=== PATIENT | male | born 1985 | race Caucasian/White ===

== ENCOUNTER 2019-03-09 17:08 | Emergency (ER) | payer SELFPAY ==
[~2019-03-09] VITALS: Ht 170.2 cm; Wt 68.2 kg
[2019-03-09] MEDS ORDERED: GI COCKTAIL 50ML BTL(HYOSCYAMINE/MAALOX/LIDOCAINE VISCOUS)(1:3:1) PO ONE (17:30)
[2019-03-09 17:49] LABS: VENOUS BASE EXCESS 2.2 (-2.0-2.0); VENOUS HCO3 23.5 MEQ/L (23.0-27.0); VENOUS O2 SATURATION 80.6 % (60.0-80.0); VENOUS PARTIAL PRESSURE CO2 28.4 mmHg (38.0-50.0); VENOUS PARTIAL PRESSURE O2 37.8 mmHg (30.0-50.0); VENOUS PH 7.535 UNITS (7.330-7.430); VENOUS STANDARD HCO3 25.9 MEQ/L; VENOUS TOTAL CO2 24.3 MEQ/L (24.0-28.0)
[2019-03-09 17:54] LABS: BASO # 0.1 10^3/uL (0.0-0.2); BASO % 0.6 % (0.0-1.0); EOS # 0.1 10^3/uL (0.0-0.5); EOS % 0.9 % (0.0-3.0); HEMATOCRIT 46.4 % (42.0-52.0); LYMPH # 2.2 10^3/uL (1.5-5.0); LYMPH % 27.2 % (24.0-44.0); MEAN CORPUSCULAR HEMOGLOBIN 29.6 pg (27.0-33.0); MEAN CORPUSCULAR HGB CONC 34.5 g/dl (32.0-36.5); MEAN CORPUSCULAR VOLUME 85.9 fl (80.0-96.0); MONO # 0.8 10^3/uL (0.0-0.8); MONO % 9.9 % (0.0-5.0); NEUTROPHILS # 4.9 10^3/uL (1.5-8.5); NEUTROPHILS % 61.2 % (36.0-66.0); PLATELET COUNT, AUTOMATED 286 10^3/uL (150-450)
--- NOTE | 2019-03-09 17:55 | REP ---
Clinical: Acute chest pain . Comparison: None . Findings: The mediastinum and cardiac silhouette are stable and within normal limits for portable technique. The lung fernandez are clear without acute consolidation, effusion, or pneumothorax. Skeletal structures are intact. Impression: No acute cardiopulmonary process appreciated. Electronically Signed by Harrison Oliveira MD 03/09/2019 05:46 P
[2019-03-09 18:13] LABS: ERYTHROCYTE SEDIMENTATION RATE 1 mm/hr (0-15)
[2019-03-09 18:19] LABS: ALBUMIN 3.9 GM/DL (3.2-5.2); ALT/SGPT 21 U/L (12-78); BILIRUBIN,DIRECT 0.2 MG/DL (0.0-0.2); BILIRUBIN,TOTAL 0.8 MG/DL (0.2-1.0); BLOOD UREA NITROGEN 9 MG/DL (7-18); C REACTIVE PROTEIN QUANTITATIV < 0.30 MG/DL (0.00-0.30); CALCIUM LEVEL 9.4 MG/DL (8.5-10.1); CARBON DIOXIDE LEVEL 24 MEQ/L (21-32); CHLORIDE LEVEL 108 MEQ/L (98-107); CK-MB VALUE MASS < 1.0 NG/ML (<3.6); CPK CREATINE PHOSPHOKINASE 82 U/L (39-308); GLOMERULAR FILTRATION RATE > 60.0 (>60); GLUCOSE, FASTING 113 MG/DL (70-100); LIPASE 135 U/L (73-393); MB/CK RELATIVE INDEX 1.22 (< OR =4); POTASSIUM SERUM 3.3 MEQ/L (3.5-5.1); SODIUM LEVEL 140 MEQ/L (136-145); TOTAL PROTEIN 6.7 GM/DL (6.4-8.2); TROPONIN I < 0.02 NG/ML (< 0.10)
[2019-03-09] MEDS ORDERED: POTASSIUM CHLORIDE 10 MEQ SR TABLET PO ONE (18:30)
[2019-03-09] MEDS ORDERED: KETOROLAC 30 MG/ML VIAL (J1885) IV ONE (18:30)
[2019-03-09 19:15] VITALS: BP 125/62
--- NOTE | 2019-03-11 07:23 | ECGEPIP ---
[facility] - ED Test Date: 2019-03-09 Pat Name: KENDRA DELAROSA Department: Room: - Gender: Male [employer]: reyna : 1985 Requested By: DEJA ALBARADO Order Number: [id number] Reading MD: Varun Conway Measurements Intervals [place] Rate: 83 P: 81 MT: 145 QRS: 73 QRSD: 86 T: 64 QT: 340 QTc: 400 Interpretive Statements SINUS RHYTHM WITH SINUS ARRHYTHMIA Comparison tracing not on file Electronically Signed on 03-11-2019 7:23:07 EST by Varun Conway
== END 2019-03-09 19:44 | disposition home or self-care (01) ==
LOC: M ED 17:08 → EDBD 17:08 → M ED 19:44
DX: R06.4 Hyperventilation (principal); Z88.8 Allergy status to other drugs, medicaments and biological substances
CPT/HCPCS: 36415; 71045; 80048; 80076; 82550; 82553; 82803; 83690; 84484; 85025; 85379; 85652; 86140; 93005; 93041; 96374; 99285; J1885

== ENCOUNTER → 2019-07-21 | Outpatient (CLI) | payer OTHER, SELFPAY ==
[~2019-07-21] MED LIST: HYDR-3363 PO
== END ==
LOC: M LABSMTC 13:37
PROVIDERS: ATTEND Family Medicine
DX: Z11.59 Encounter for screening for other viral diseases (principal); Z20.828 Contact with and (suspected) exposure to other viral communicable diseases
CPT/HCPCS: C9803; U0003

== ENCOUNTER 2019-08-23 21:18 | Emergency (ER) | payer SELFPAY ==
[~2019-08-23] VITALS: Ht 170.2 cm; Wt 81.8 kg
[2019-08-23 21:18] VITALS: BP 138/80
[2019-08-23] MEDS ORDERED: HYDR-3363 PO (22:47)
== END 2019-08-23 23:41 | disposition home or self-care (01) ==
LOC: M ED 21:18
DX: F41.1 Generalized anxiety disorder (principal); Z79.899 Other long term (current) drug therapy; Z88.8 Allergy status to other drugs, medicaments and biological substances

== ENCOUNTER → 2020-05-23 | Outpatient (CLI) | payer SELFPAY ==
[~2020-05-23] MED LIST changes: +AUGM875T28 PO; +COLD1LIQ PO
== END ==
LOC: M LABSMTC 12:07
PROVIDERS: ATTEND Family Medicine
DX: Z20.822 Contact with and (suspected) exposure to COVID-19 (principal)
CPT/HCPCS: C9803; U0003

== ENCOUNTER 2020-05-25 12:56 | Emergency (ER) | payer SELFPAY ==
[~2020-05-25 12:56] MED LIST changes: -AUGM875T28 PO; -COLD1LIQ PO
[2020-05-25] MEDS ORDERED: COLD1LIQ PO (14:03)
[2020-05-25] MEDS ORDERED: AUGM875T28 PO (14:03)
[2020-05-25 14:20] VITALS: BP 122/76
== END 2020-05-25 14:25 | disposition home or self-care (01) ==
LOC: M ED 12:56 → EDBD 12:56 → M ED 14:25
DX: U07.1 COVID-19 (principal); F41.9 Anxiety disorder, unspecified; Z88.8 Allergy status to other drugs, medicaments and biological substances

== ENCOUNTER 2020-12-12 21:35 | Emergency (ER) | payer SELFPAY, OTHER ==
[~2020-12-12] VITALS: Ht 172.7 cm; Wt 68.7 kg
[2020-12-12 21:35] VITALS: BP 140/74
[~2020-12-12 21:35] MED LIST changes: +AUGM875T28 PO; +COLD1LIQ PO
== END 2020-12-12 21:57 | disposition left against medical advice (07) ==
LOC: M ED 21:35
DX: Z53.29 Procedure and treatment not carried out because of patient's decision for other reasons (principal)

== ENCOUNTER 2021-08-17 08:49 | Emergency (ER) | payer OTHER, SELFPAY ==
[~2021-08-17] VITALS: Ht 170.2 cm; Wt 70.5 kg
[2021-08-17] MEDS ORDERED: NS 1,000 ML IV ONE (09:30)
[2021-08-17] MEDS ORDERED: MORPHINE 4 MG/ML 1ML VIAL/SYRINGE IV ONE (09:30)
[2021-08-17] MEDS ORDERED: ONDANSETRON 4MG/2ML VIAL IV ONE (09:30)
[2021-08-17 09:44] LABS: BASO # 0.1 10^3/uL (0.0-0.2); BASO % 0.4 % (0.0-1.0); EOS % 0.3 % (0.0-3.0); HEMATOCRIT 45.5 % (42.0-52.0); HEMOGLOBIN 16.1 g/dl (13.5-17.5); LYMPH # 1.7 10^3/uL (1.5-5.0); LYMPH % 14.6 % (24.0-44.0); MEAN CORPUSCULAR HEMOGLOBIN 29.4 pg (27.0-33.0); MEAN CORPUSCULAR HGB CONC 35.4 g/dl (32.0-36.5); MONO # 0.8 10^3/uL (0.0-0.8); MONO % 7.2 % (2.0-8.0); NEUTROPHILS % 77.2 % (36.0-66.0); PLATELET COUNT, AUTOMATED 247 10^3/uL (150-450); RED BLOOD COUNT 5.48 10^6/uL (4.30-6.10); WHITE BLOOD COUNT 11.7 10^3/uL (4.0-10.0)
[2021-08-17 10:19] LABS: ALBUMIN 4.2 GM/DL (3.2-5.2); ALT/SGPT 21 U/L (12-78); BILIRUBIN,TOTAL 1.2 MG/DL (0.2-1.0); BLOOD UREA NITROGEN 9 MG/DL (7-18); CALCIUM LEVEL 9.7 MG/DL (8.5-10.1); CARBON DIOXIDE LEVEL 20 MEQ/L (21-32); CHLORIDE LEVEL 108 MEQ/L (98-107); CREATININE FOR GFR 1.26 MG/DL (0.70-1.30); GLOMERULAR FILTRATION RATE > 60.0 (>60); GLUCOSE, FASTING 164 MG/DL (70-100); LIPASE 111 U/L (73-393); POTASSIUM SERUM 3.8 MEQ/L (3.5-5.1); SODIUM LEVEL 141 MEQ/L (136-145); TOTAL PROTEIN 7.1 GM/DL (6.4-8.2)
[2021-08-17] MEDS ORDERED: NS IV ONE (11:10)
[2021-08-17] MEDS ORDERED: ISOVUE-370 76% 100ML VIAL As Ordered ONE (11:18)
[2021-08-17] MEDS ORDERED: KETOROLAC 30 MG/ML 1ML VIAL IV ONE (11:50)
[2021-08-17] MEDS ORDERED: LIDOCAINE 2% 5ML JELLY UROJET TOP ONE (12:30)
[2021-08-17] MEDS ORDERED: FLOM0.4C39 PO (13:36)
[2021-08-17] MEDS ORDERED: KETO10TAB PO (13:36)
[2021-08-17 13:45] VITALS: BP 130/75
== END 2021-08-17 14:00 | disposition home or self-care (01) ==
LOC: M ED 08:49
DX: N13.2 Hydronephrosis with renal and ureteral calculous obstruction (principal); R42 Dizziness and giddiness; F32.A Depression, unspecified; F41.9 Anxiety disorder, unspecified; Z88.8 Allergy status to other drugs, medicaments and biological substances; Z79.899 Other long term (current) drug therapy; F17.200 Nicotine dependence, unspecified, uncomplicated
CPT/HCPCS: 74177; 80053; 81001; 83605; 83690; 85025; 96361; 96374; 96375; 99284; J1885; J2270; J2405; Q9967

== ENCOUNTER 2021-10-02 10:48 | Emergency (ER) | payer OTHER, SELFPAY ==
[~2021-10-02] VITALS: Ht 170.2 cm; Wt 70.5 kg
[~2021-10-02 10:48] MED LIST changes: +FLOM0.4C39 PO; +KETO10TAB PO
[2021-10-02] MEDS ORDERED: NS 1,000 ML IV ONE (11:50)
[2021-10-02] MEDS ORDERED: NAPR-885 PO (12:33)
[2021-10-02] MEDS ORDERED: MORPHINE 4 MG/ML 1ML VIAL/SYRINGE IV ONE (12:35)
[2021-10-02 12:37] LABS: BASO % 0.3 % (0.0-1.0); EOS % 0.2 % (0.0-3.0); HEMATOCRIT 43.8 % (42.0-52.0); HEMOGLOBIN 15.1 g/dl (13.5-17.5); LYMPH # 0.9 10^3/uL (1.5-5.0); LYMPH % 7.1 % (24.0-44.0); MEAN CORPUSCULAR HEMOGLOBIN 30.4 pg (27.0-33.0); MEAN CORPUSCULAR HGB CONC 34.5 g/dl (32.0-36.5); MEAN CORPUSCULAR VOLUME 88.3 fl (80.0-96.0); MONO # 0.9 10^3/uL (0.0-0.8); MONO % 6.8 % (2.0-8.0); NEUTROPHILS # 11.1 10^3/uL (1.5-8.5); NEUTROPHILS % 85.1 % (36.0-66.0); PLATELET COUNT, AUTOMATED 221 10^3/uL (150-450); RED BLOOD COUNT 4.96 10^6/uL (4.30-6.10)
[2021-10-02 13:21] LABS: ALBUMIN 4.5 GM/DL (3.2-5.2); ALT/SGPT 21 U/L (12-78); BILIRUBIN,DIRECT 0.2 MG/DL (0.0-0.2); BILIRUBIN,TOTAL 1.1 MG/DL (0.2-1.0); BLOOD UREA NITROGEN 12 MG/DL (7-18); CALCIUM LEVEL 9.9 MG/DL (8.5-10.1); CARBON DIOXIDE LEVEL 21 MEQ/L (21-32); CHLORIDE LEVEL 107 MEQ/L (98-107); CREATININE FOR GFR 1.28 MG/DL (0.70-1.30); GLOMERULAR FILTRATION RATE > 60.0 (>60); GLUCOSE, FASTING 126 MG/DL (70-100); LIPASE 90 U/L (73-393); POTASSIUM SERUM 4.1 MEQ/L (3.5-5.1); SODIUM LEVEL 140 MEQ/L (136-145); TOTAL PROTEIN 6.9 GM/DL (6.4-8.2)
[2021-10-02] MEDS ORDERED: TAMSULOSIN 0.4 MG CAP PO ONE (13:30)
[2021-10-02] MEDS ORDERED: KETOROLAC 30 MG/ML 1ML VIAL IV ONE (13:30)
[2021-10-02] MEDS ORDERED: FLOM0.4C39 PO (13:51)
[2021-10-02] MEDS ORDERED: KETO10TAB PO (13:51)
[2021-10-02 14:43] VITALS: BP 121/69
== END 2021-10-02 15:13 | disposition home or self-care (01) ==
LOC: M ED 10:48
DX: N20.0 Calculus of kidney (principal); N13.4 Hydroureter; Z79.899 Other long term (current) drug therapy; Z88.8 Allergy status to other drugs, medicaments and biological substances; Z87.442 Personal history of urinary calculi
CPT/HCPCS: 74176; 80047; 80048; 80076; 81001; 83690; 85025; 87086; 96361; 96374; 96375; 99284; J1885; J2270

== ENCOUNTER → 2021-10-09 | Outpatient (REF) | payer OTHER ==
[~2021-10-09] MED LIST changes: +NAPR-885 PO
[2021-10-16 15:07] LABS: CA Oxalate Dihy 10 % (.); Ca Ox Monohydrate 90 % (.); Size 4x3 mm (.)
== END ==
LOC: M SMT 17:02
PROVIDERS: ATTEND Physician Assistant
DX: N20.0 Calculus of kidney (principal)

== ENCOUNTER → 2021-10-31 | Outpatient (REF) | payer OTHER ==
[~2021-10-31] MED LIST changes: +IBUP-1022 PO
[2021-10-31 15:40] LABS: APPEARANCE, URINE MANUAL CLEAR (CLEAR); BILIRUBIN, URINE MANUAL NEGATIVE (NEGATIVE); BLOOD URINE MANUAL NEGATIVE (NEGATIVE); COLOR, URINE MANUAL LT YELLOW (YELLOW); GLUCOSE, URINE (UA) MANUAL NEGATIVE (NEGATIVE); KETONE, URINE MANUAL NEGATIVE (NEGATIVE); NITRITE, URINE MANUAL NEGATIVE (NEGATIVE); PROTEIN, URINE MANUAL NEGATIVE (NEGATIVE); UROBILINOGEN, URINE MANUAL NORMAL (NORMAL)
[2021-10-31 15:41] LABS: LEUKOCYTE ESTERASE, URINE MAN NEGATIVE (NEGATIVE); SPECIFIC GRAVITY,URINE MANUAL 1.005 (1.002-1.035)
== END ==
LOC: M LAB REF 15:32
PROVIDERS: ATTEND Surgery
DX: Z13.89 Encounter for screening for other disorder (principal)

== ENCOUNTER 2021-11-01 08:47 | Day surgery (SDC) | payer OTHER ==
[~2021-11-01] VITALS: Ht 170.2 cm; Wt 65.0 kg
[~2021-11-01 08:47] MED LIST changes: +ceFAZolin SOD 2 GM in IV 1 EA IV ONE
[2021-11-01] MEDS ORDERED: LR 1,000 ML IV SCH (09:20)
[2021-11-01] MEDS ORDERED: fentaNYL 100 MCG/2 ML INJECTION As Ordered ONE (13:04)
[2021-11-01] MEDS ORDERED: MIDAZOLAM INJ 2MG/2ML VIAL (J2250 PER 1MG) As Ordered ONE (13:04)
[2021-11-01] MEDS ORDERED: LIDOCAINE 2% 100MG/5ML SDV (FOR ANES.) As Ordered ONE (13:05)
[2021-11-01] MEDS ORDERED: propofoL 200 MG/20 ML VIAL As Ordered ONE ×2 (13:05→15:21)
[2021-11-01] MEDS ORDERED: ISOVUE-300 61% 50ML VIAL As Ordered ONE (13:23)
[2021-11-01] MEDS ORDERED: ROCURONIUM BROMIDE 50 MG/5 ML VIAL As Ordered ONE (13:57)
[2021-11-01] MEDS ORDERED: ONDANSETRON 4MG 2ML VIAL As Ordered ONE (13:59)
[2021-11-01] MEDS ORDERED: dexameTHASONE 4 MG/ML 1ML VIAL (J1100 PER 1MG) As Ordered ONE (13:59)
[2021-11-01] MEDS ORDERED: ACETAMINOPHEN 1000MG 100ML IV BTL (OFIRMEV) (J0131 PER 10MG) As Ordered ONE (14:03)
[2021-11-01] MEDS ORDERED: SUGAMMADEX SODIUM 500 MG/5 ML VIAL (BRIDION) As Ordered ONE (14:18)
[2021-11-01] MEDS ORDERED: PERCOCET 5MG/325MG TAB PO PRN (15:55)
[2021-11-01] MEDS ORDERED: HYDROMORPHONE HCL 0.5 MG/ 0.5 ML SYRINGE (J1170 PER 1) IV PRN (16:05)
[2021-11-01] MEDS ORDERED: ONDANSETRON 4MG 2ML VIAL IV PRN (16:05)
[2021-11-01] MEDS ORDERED: oxyCODONE 5MG TAB PO PRN (16:05)
[2021-11-01] MEDS ORDERED: METOCLOPRAMIDE INJ 10MG/2ML VIAL (J2765 PER 1) IV PRN (16:05)
[2021-11-01 16:40] VITALS: BP 124/69
[2021-11-07 16:08] LABS: CA Oxalate Dihy 20 % (.); Ca Ox Monohydrate 80 % (.); Size 5x4 mm (.)
== END 2021-11-01 17:00 | disposition home or self-care (01) ==
LOC: M SDC 08:47
PROVIDERS: ATTEND Urology
DX: N20.0 Calculus of kidney (principal); N21.0 Calculus in bladder; Z79.899 Other long term (current) drug therapy; F17.200 Nicotine dependence, unspecified, uncomplicated; Z88.8 Allergy status to other drugs, medicaments and biological substances
CPT/HCPCS: 52332; 52352; 74420; 82365; C1769; C1894; C2617; J0131; J0690; J1100; J2250; J2405; J2765; J3010; Q9967